=== PATIENT | male | born 2000 | race Caucasian/White ===

== ENCOUNTER 2021-04-06 18:27 | Emergency (ER) | payer MEDICAID ==
[~2021-04-06] VITALS: Ht 188 cm; Wt 81.6 kg
[2021-04-06 18:30] VITALS: BP_SYST 152
[2021-04-06] MEDS ORDERED: IBUP-1969 PO (19:58)
[2021-04-06] MEDS ORDERED: ERYEYE LEFT EYE (19:58)
== END 2021-04-06 20:08 | disposition home or self-care (01) ==
LOC: SED 18:27
DX: S05.02XA Injury of conjunctiva and corneal abrasion without foreign body, left eye, initial encounter (principal); Z79.899 Other long term (current) drug therapy; X58.XXXA Exposure to other specified factors, initial encounter; Y93.89 Activity, other specified; Y92.89 Other specified places as the place of occurrence of the external cause; Y99.8 Other external cause status
CPT/HCPCS: 99283